=== PATIENT | female | born 2000 ===

== ENCOUNTER 2025-09-04 13:19 | Emergency (ER) | payer BC, OTHER ==
[2025-09-04 13:33] VITALS: TEMP 98.2; O2SAT 98
[2025-09-04 13:34] VITALS: PULSE 96; RESP 20
[2025-09-04] MEDS ORDERED: CLARITIN 10 MG ONE (13:43)
[2025-09-04] MEDS ORDERED: DELTASONE 20 MG ONE (13:44)
[2025-09-04] MEDS: CLARITIN 10 MG PO ONE (13:44)
[2025-09-04] MEDS: DELTASONE 20 MG PO ONE (13:44)
--- NOTE | 2025-09-04 14:27 | ERPHSYRPT ---
- History of Present Illness Patient Subjective Stated Complaint: patient developed rash on amoxicillin Triage Nursing Assessment: patient came to ED finished her amoxicillin yesterday for wisdom teeth and she is all broke out today in a rash all over chest and neck. no difficulty breathing at this time no thrat tightness or diffculty swallowing noted. lung sounds clear bilateral. Physician History: Rash, onset of symptoms today, she just finished a course of antibiotics after having a wisdom tooth removed, the rash involves the face, neck, chest, back, arms; she denied having difficulty breathing, she denied any difficulty swallowing Allergies/Adverse Reactions: amoxicillin Allergy (Verified 09/04/25 14:00) Hx Tetanus, Diphtheria Vaccination/Date Given: Yes Hx Influenza Vaccination/Date Given: No Hx Pneumococcal Vaccination/Date Given: No Immunizations Up to Date: Yes Travel Risk - International Travel Have you traveled outside of the country in past 3 weeks: No - Emerging Infectious Disease Are you exhibiting symptoms associated with any current EIDs: No - Past Medical History Pertinent Past Medical History: No Neurological History: No Pertinent History ENT History: No Pertinent History Cardiac History: No Pertinent History Respiratory History: No Pertinent History Endocrine Medical History: No Pertinent History Musculoskeletal History: No Pertinent History GI Medical History: No Pertinent History History: No Pertinent History Psycho-Social History: No Pertinent History Female Reproductive Disorders: No Pertinent History - Past Surgical History Past Surgical History: No Neuro Surgical History: No Pertinent History Cardiac: No Pertinent History Respiratory: No Pertinent History Gastrointestinal: No Pertinent History Musculoskeletal: No Pertinent History Female Surgical History: No Pertinent History Other Surgical History: wisdom teeth - Female History Hx Now: No - Social History Smoking Status: Never smoker Exposure to second hand smoke: No Drug Use: none - Social Determinants of Health Will the patient participate in the screening: Yes Do you worry about a steady place to live?: No Do you have any problems with any of the following?: No known problems In the past 12 months,have you had to go without utilities?: No Transportation Issues: No Has anyone in your support network made you feel unsafe?: No Have you or anyone in your house had to go w/o enough food: No - Nursing Vital Signs Nursing Vital Signs: Initial Vital Signs Pulse Rate 96 H 09/04/25 13:19 Respiratory Rate 20 09/04/25 13:19 Blood Pressure 108/81 09/04/25 13:19 O2 Sat by Pulse Oximetry 98 09/04/25 13:19 Pain Scale Pain Intensity 0 - Physical Exam General Appearance: no apparent distress, alert Eye Exam: PERRL/EOMI, eyes nml inspection Ears, Nose, Throat Exam: normal ENT inspection, pharynx normal, moist mucous membranes Neck Exam: normal inspection, non-tender, supple, full range of motion Respiratory Exam: normal breath sounds, lungs clear, No respiratory distress Cardiovascular Exam: regular rate/rhythm, normal heart sounds Gastrointestinal/Abdomen Exam: soft, mass, No tenderness Back Exam: normal inspection, normal range of motion, No CVA tenderness, No vertebral tenderness Extremity Exam: normal inspection, normal range of motion Neurologic Exam: alert, oriented x 3, cooperative, normal mood/affect, sensation nml, No motor deficits Skin Exam: normal color, warm, dry, rash ( arms) SpO2 Interpretation: normal SpO2: 98 Ordered Tests: Medication Summary Discontinued Medications Generic Name Dose Route Start Last Admin Trade Name Freq PRN Reason Stop Dose Admin Loratadine 10 mg 09/04/25 13:40 09/04/25 13:44 Loratadine 10 Mg Tablet PO 09/04/25 13:41 10 mg STAT ONE Administration Loratadine Confirm 09/04/25 13:43 Loratadine 10 Mg Tablet Administered 09/04/25 13:44 Dose 10 mg .ROUTE .STK-MED ONE Prednisone 40 mg 09/04/25 13:39 09/04/25 13:44 Prednisone 20 Mg Tablet PO 09/04/25 13:40 40 mg STAT ONE Administration Prednisone Confirm 09/04/25 13:44 Prednisone 20 Mg Tablet Administered 09/04/25 13:45 Dose 40 mg .ROUTE .STK-MED ONE - Progress Progress Note: 09/04/25 14:23 Recommend prednisone, second-generation antihistamine, no amoxicillin(Penicillins) - Departure Departure Disposition: Home Clinical Impression: Allergic reaction due to antibacterial drug Condition: Good Critical Care Time: No Referrals: GRICEL HYDE FNP [Primary Care Provider, UNKNOWN] - Follow up/PCP as directed Instructions: Adverse Drug Reactions, Adult (DC) Prescriptions: Prednisone 20 mg [Deltasone 20 mg] 20 mg PO DAILY #5 tablet Cetirizine HCl [Zyrtec] 10 mg PO DAILY #20 tablet
[2025-09-04 14:31] VITALS: BP 110/83
== END 2025-09-04 14:42 | disposition home or self-care (01) ==
LOC: ED 13:19
DX: L27.0 Generalized skin eruption due to drugs and medicaments taken internally (principal); T36.0X5A Adverse effect of penicillins, initial encounter; Z79.52 Long term (current) use of systemic steroids; Z79.899 Other long term (current) drug therapy